=== PATIENT | male | born 1990 | race Caucasian/White ===

== ENCOUNTER 2019-06-06 15:25 | Emergency (ER) | payer MEDICAID, SELFPAY ==
[2019-06-06 15:25] VITALS: BP 131/73; PULSE 82; RESP 16; TEMP 36.8; O2SAT 99; BMI 21.7
--- NOTE | 2019-06-06 15:40 | CT_ITS ---
STUDY: CT ABDOMEN AND PELVIS WITHOUT CONTRAST REASON FOR EXAM: Male, 28 years old. LEFT FLANK PAIN AND HEMATURIA FEW DAYS AGO. BURNING WITH URINATION RADIATION DOSAGE (If Supplied By Facility): CTDIvol = ( 6.04 ) mGy, DLP = ( 277.84 ) mGycm TECHNIQUE: Transaxial images were obtained from the dome of the diaphragm to the symphysis pubis without oral contrast, and without intravenous contrast. Sagittal and coronal images were reconstructed. Individualized dose optimization techniques were used for this CT. COMPARISON: None. FINDINGS: The visualized lung bases are unremarkable. The visualized portions of the heart are within normal limits. Normal liver. Normal gallbladder and extrahepatic biliary system. Normal spleen. Normal pancreas. Normal bilateral adrenal glands. Normal right kidney. Normal left kidney. Normal visualized stomach. Normal small intestine. Normal colon. The appendix is visualized and appears normal. Normal abdominal aorta. Normal inferior vena cava. Normal retroperitoneum. Normal urinary bladder. Normal abdominal wall. Normal osseous structures. CT/Abdomen/Pelvis without Cont IMPRESSION: Normal unenhanced CT of the abdomen and pelvis. Electronically Signed: Jalil Hardwick MD at 16:18 EDT , Service support ,
--- NOTE | 2019-06-06 15:43 | ED.DCSUM_ITS ---
- ER Visit Summary Date of Service: 06/06/19 Chief Complaint: Atraumatic left flank pain History of Present Illness: The patient is a 28 M has medical history of seizures and ADHD. Patient states he has had left flank pain since yesterday. Is a dull aching at times its sharp squeezing pain. He did have hematuria several days ago. He is never been diagnosed with a kidney stone before. He has had flank pain before had an ultrasound that he thinks was negative. Is never had a CAT scan. He denies any dysuria. No fever. No other complaints. Physical Examination: Young male no acute distress vital signs stable afebrile. Currently he is relatively comfortable and does not be there for pain. H EENT exam normal. Neck nontender no lymphadenopathy. Lungs clear to auscultation bilaterally. Heart regular rhythm no murmur. Abdomen soft nontender normal bowel sounds no peritoneal signs. Extremities moves all 4 neurovascular intact. Normal motor strength sensation. Back no reproducible tenderness on his back no signs of trauma. No CVA tenderness. Neurologically is awake alert with no focal motor deficits. Test Results: UA normal. CAT scan abdomen pelvis normal. Normal appendix. No stone seen. Read by the radiologist and reviewed by me. Emergency Department Course and Treatment: Patient currently does not need or waiting for pain. Definitely this could be a kidney stone. We will get a CAT scan without contrast and urinalysis. Treatment Plan: Repeat exam patient doing well at 1655. Abdomen benign. We went over his test results. Strain his urine for possible stone. Follow-up as needed. Disposition: Discharge Impression: Acute left flank pain of uncertain etiology This note was generated with [employer] dictation software. It may contain incorrect words, spelling, and punctuation that were not noted in review of the chart prior to signing ED Disposition - Plan for ED Patient: Referrals: Vladislav Campa MD [Primary Care Provider] -
[2019-06-06 15:51] LABS: Bacteria 0 SEEN /hpf (None Seen); Mucous, Urine 0 SEEN /hpf (<or=2+); Red Blood Cells-Urine 0 SEEN /hpf (0-5); Squamous Epithelial Cells - UA 0 SEEN /hpf (0-5); White Blood Cells 0 SEEN /hpf (0-5)
[2019-06-06 15:52] LABS: Color, Urine Yellow (Yellow); Glucose, Dipstick Normal (Normal); Ketone-Dipstick Negative (Negative); Leukocyte Esterase-Dipstick Negative /ul (Negative); Nitrite-Dipstick Negative (Negative); Occult Blood-Urine Negative /ul (Negative); Protein-Dipstick Negative (Negative); Specific Gravity, Urine 1.025 (1.002-1.030); Urine Bilirubin Dipstick Negative (Negative); Urine Clarity Clear (Clear); Urine Urobilinogen Normal (Normal)
--- NOTE | 2019-06-06 17:06 | ED.DEP ---
ED Disposition - Plan for ED Patient: Disposition: Home or Assisted Living Instructions: ED Flank Pain Uncertain Cause Referrals: Vladislav Campa MD [Primary Care Provider] - 3-5 Days if not improving Additional Instructions: Both your urine and CAT scan were normal. Your appendix was seen and is normal. They did not see any kidney stone. Strain your urine for possible passed stone. Follow-up if not improving.
== END 2019-06-06 17:11 | disposition home or self-care (01) ==
PROVIDERS: Emergency Provider Emergency Medicine; PCP Family Medicine
DX: R10.9 Unspecified abdominal pain (principal); R05 Cough; F90.9 Attention-deficit hyperactivity disorder, unspecified type; G40.909 Epilepsy, unspecified, not intractable, without status epilepticus; Z72.0 Tobacco use
CPT/HCPCS: 74176; 81001; 99282

== ENCOUNTER → 2019-07-08 11:02 | Outpatient (CLI) | payer MEDICAID, SELFPAY ==
[2019-07-08 11:17] LABS: Bacteria 0 SEEN /hpf (None Seen); Mucous, Urine 0 SEEN /hpf (<or=2+); Red Blood Cells-Urine 0 SEEN /hpf (0-5); White Blood Cells 0 SEEN /hpf (0-5)
[2019-07-08 15:37] LABS: Hematocrit 43.1 % (40-54); Mean Corp Hgb Conc 34.8 g/dL (32-36); Mean Corpuscular Hgb 29.5 pg (27.0-32.0); Mean Corpuscular Volume 84.7 fL (80-94); Mean Platelet Vol. 8.5 fl (6.2-12.0); Platelet Count 293 K/mm3 (150-450); RBC Distribution Width CV 11.9 % (11.6-14.6); RBC Distribution Width SD 36.1 fl (35.1-43.9); Red Blood Count 5.09 M/mm3 (4.6-6.2); White Blood Count 7.5 K/mm3 (4.4-11.0)
[2019-07-08 15:50] LABS: Hemoglobin A1c 5.5 % (4.2-6.3)
[2019-07-08 15:54] LABS: Color, Urine Yellow (Yellow); Glucose, Dipstick Normal (Normal); Ketone-Dipstick Negative (Negative); Leukocyte Esterase-Dipstick Negative /ul (Negative); Nitrite-Dipstick Negative (Negative); Occult Blood-Urine Negative /ul (Negative); Protein-Dipstick Negative (Negative); Urine Bilirubin Dipstick Negative (Negative); Urine Clarity Sl. Cloudy (Clear); Urine Urobilinogen Normal (Normal); Urine pH 6.5 (5.0 - 8.0)
[2019-07-08 16:03] LABS: ALB/GLOB Ratio 1.2 RATIO (0.9-2.4); AST(SGOT) 16 U/L (15-37); Alanine Aminotransfer ALT/SGPT 27 U/L (16-61); Albumin, Serum 3.9 g/dL (3.2-5.0); Alkaline Phosphatase 94 U/L (45-117); Anion Gap 2 (5-15); BUN 14 mg/dL (7-18); BUN/Creat Ratio 18.2 RATIO (10-20); Calcium,Total 9.2 mg/dL (8.5-10.1); Chloride 103 mmol/L (98-107); Creatinine, Serum 0.77 mg/dL (0.70-1.30); EST Glomerular Filtration Rate 125 mL/min (>60); Est Glom Filt Rate - Afr Amer 151 mL/min (>60); Free T3 3.7 pg/mL (2.18-3.98); Globulin 3.2 g/dL (2.2-4.2); Glucose 73 mg/dL (74-106); Potassium 3.7 mmol/L (3.5-5.1); Protein, Total 7.1 g/dL (6.4-8.2); Sodium Level 138 mmol/L (136-145); T4 Free Direct 1.01 ng/dL (0.76-1.46); Thyroid Stim Hormone (TSH) 0.69 uIU/mL (0.358-3.74)
[2019-07-08 16:04] LABS: Amorphous Sediment 1+ URATE; Squamous Epithelial Cells - UA 0-5 SEEN /hpf (0-5)
[2019-07-08 16:08] LABS: Microalbumin,Random Urine 5.4 mg/L (NO RANGE EST.); Microalbumin:Creatinine Ratio 5.4 mg/g CRE (<30 mg/g CRE); Urine Sodium 126 mmol/L (Not Establ.)
== END ==
PROVIDERS: PCP Family Medicine; Referring Provider Family Medicine; Visit Provider Family Medicine
DX: R35.8 Other polyuria (principal); J45.20 Mild intermittent asthma, uncomplicated; R79.89 Other specified abnormal findings of blood chemistry
CPT/HCPCS: 36415; 80053; 81001; 82043; 82570; 83036; 84300; 84439; 84443; 84481; 85027

== ENCOUNTER 2020-12-23 13:19 | Emergency (ER) | payer OTHER, SELFPAY ==
[2020-12-23 13:20] VITALS: BP 119/73; PULSE 85; RESP 18; TEMP 36.2; O2SAT 96; BMI 20.9
--- NOTE | 2020-12-23 13:29 | ED.RN ---
called Ivette to come in for drug screening.
--- NOTE | 2020-12-23 15:27 | EX.ED.GENINJ ---
HPI History of Present Illness Chief Complaint: Head Injury Detail of Chief Complaint: Head injury that occurred yesterday Narrative Narrative: Patient presents to the emergency department stating that he was at work yesterday when he ran into a metal pipe with his head. No loss of consciousness. He became concerned today when while sitting he began feeling lightheaded and near syncopal. Patient did not actually pass out. Patient states that the symptoms did not last very long and currently all the symptoms of resolved. Patient denies headache. He denies neck pain. He has had no vomiting. Patient is not anticoagulated. Patient does have history of seizures but is not medicated for these. He has no primary care physician. PFSH PFSH Home Medications NK 06/06/19 [History Last Taken Unknown] Allergy/AdvReac Type Severity Reaction Status Date / Time Iodinated Contrast Media AdvReac PT UNSURE Verified 06/06/19 15:27 [CONTRASTS] OF REACTION naproxen [From Naprosyn] AdvReac Upset Verified 06/06/19 15:27 Stomach Social History Smoking Status: Current every day smoker ROS ROS ED ROS Narrative Lightheadedness and near syncope Constitutional Constitutional ED: Reports systems reviewed and no addt'l complaints, except as documented; Denies body ache(s), change in weight or chills Eyes Eyes: Denies acute decrease in peripheral vision, change in vision, double vision or loss of vision ENT ENT ED: Reports none; Denies ear pain, lip swelling, loss taste/smell, neck pain, otalgia or sore throat Cardiovascular Cardiovascular: Reports none; Denies abdominal pain, chest pain with activity, leg edema, lightheadedness, palpitations, rapid heart rate or syncope Respiratory/Chest Respiratory/Chest: Reports none; Denies change in mental status, dry cough, dyspnea, hemoptysis, shortness of breath at rest or shortness of breath with exertion Gastrointestinal Gastrointestinal: Reports none; Denies abdominal pain, change in stool character, diarrhea, hematemesis, hematochezia, melena, rectal bleeding or vomiting Genitourinary Genitourinary ED: Reports none; Denies abdominal discomfort, anuria, dysuria, genital pain or polyuria Musculoskeletal Musculoskeletal: Reports none; Denies arthralgias, back pain, difficulty walking, extremity pain, muscle weakness or myalgias Integumentary Reports none; Denies abscess or rash Neurologic Neurologic: Reports none; Denies abnormal gait, confusion, focal weakness, frequent falls, headache(s), loss of vision, numbness, paresthesias, radicular pain, vertigo or weakness Psychiatric Psychiatric: Reports systems reviewed and no addt'l complaints, except as documented and none; Denies behavioral changes, confusion, difficulty concentrating, hallucinations, suicidal ideation, tactile hallucinations or visual hallucinations Endocrine Endocrinology: Denies none, cold intolerance, excessive sweating, fatigue or heat intolerance Hematologic/Lymphatic Hematologic/Lymphatic: Reports none; Denies anemia, easy bleeding or easy bruising Allergic/Immunologic Allergic/Immunologic ED: Denies as per HPI, none, lip swelling, mouth swelling, throat swelling, tongue swelling or hives EXAM Physical Exam Const Vital Signs: 12/23/20 13:20 Temperature 97.2 F L Temperature Source Temporal Pulse Rate 85 Respiratory Rate 18 Blood Pressure 119/73 Blood Pressure Mean 88 Pulse Ox 96 Oxygen Delivery Method Room Air Positive well nourished and well developed General Appearance ED: well developed and NAD HEENT Reports TM's clear and moist mucous membranes HEENT Narrative: Patient has a linear area of subtle erythema to the frontal scalp measuring approximately 1.5 cm in length. No bony step-offs noted. No hematomas noted. No hemotympanum. normocephalic, atraumatic and trauma; Negative for tenderness Tympanic Membrane ED: Yes TM's clear Eyes PERRL and EOMs intact bilaterally General Eye ED: Negative for pale conjunctiva or scleral icterus Neck no lymphadenopathy, supple and no JVD General: Negative for tenderness Chest Wall inspection of chest normal and palpation of chest normal Chest: Negative for tenderness Resp normal respiratory effort and clear to auscultation bilaterally Effort and Inspection: Negative for respiratory distress or pain with movement Auscultation: Negative for rhonchi, wheezes or diminished lung sounds Cardio regular rate, regular rhythm, S1 normal heart sound, S2 normal heart sound and no murmurs Peripheral Pulses: pulses 2+ throughout GI normal to inspection, nondistended, normoactive bowel sounds, soft to palpation, non-tender, non-distended and no masses Back/Spine no CVA tenderness and no thoracic nor lumbar tenderness Extremity normal to inspection General Extremety ED: Negative for edema General Extremity: Negative for edema Neuro oriented x3, CN's II-XII intact bilaterally, no sensory deficits noted and gait normal Neuro Narrative: Finger-nose and heel saunders testing within normal limits, negative Romberg, negative pronator drift, fundi benign Sensorium / Orientation: awake, alert, oriented to person, oriented to place and oriented to time Motor Exam: strength 5/5 throughout and strength abnormal Psych mental status grossly normal Skin no rashes or lesions noted and no wounds MDM MDM MDM Narrative Medical decision making narrative: At this point I suspect patient has a closed head injury with mild concussion. I do not feel any imaging is indicated. Patient looks well and is asymptomatic at this time. Patient advised to follow-up with [facility] care in 3 to 5 days. Patient to return if worsening headache, vomiting, difficulty with balance, vision changes, or condition should worsen anyway. Discharge Plan Triage Chief Complaint: Head Injury ED Provider: Alexy Quezada Dx/Rx/DC Orders Clinical Impression: Closed head injury Instructions: After a Concussion, ED Head Injury (Adult) Prescriptions: No Action NK RF: 0 Primary Care Provider: Vladislav Campa [facility]errals: [facility] [GROUP OF PHYSICIANS] - 3-5 Days Vladislav Campa MD [Primary Care Provider] - Disposition Disposition: Home, Self Care
[2020-12-23 15:38] VITALS: RESP 16
== END 2020-12-23 15:40 | disposition home or self-care (01) ==
LOC: ED 15:37
PROVIDERS: Emergency Provider Emergency Medicine; PCP Family Medicine
DX: S09.90XA Unspecified injury of head, initial encounter (principal); W22.8XXA Striking against or struck by other objects, initial encounter; Y93.9 Activity, unspecified; Y92.9 Unspecified place or not applicable; F17.200 Nicotine dependence, unspecified, uncomplicated
CPT/HCPCS: 99282

== ENCOUNTER 2021-03-16 12:59 | Emergency (ER) | payer MEDICAID, SELFPAY ==
[2021-03-16 13:00] VITALS: BP 130/82; PULSE 73; RESP 16; TEMP 36.4; O2SAT 100; BMI 22.6
--- NOTE | 2021-03-16 13:33 | RAD_ITS ---
STUDY: X-RAY - THORACIC SPINE REASON FOR EXAM: Male, 30 years old. Pain TECHNIQUE: 3 view(s) of the thoracic spine were obtained. COMPARISON: None. FINDINGS: There is straightening of the normal thoracic kyphosis. There is no substantial scoliosis. Normal thoracic vertebrae and endplates. Normal disc space heights. The soft tissue structures are unremarkable. RAD/Thoracic Spine 3 Views IMPRESSION: Straightening of the normal thoracic kyphosis. Electronically Signed: Flex Conte MD at 14:06 EST , Service support ,
--- NOTE | 2021-03-16 13:33 | RAD_ITS ---
STUDY: X-RAY - LUMBAR SPINE REASON FOR EXAM: Male, 30 years old. Pain TECHNIQUE: 3 view(s) of the lumbar spine were obtained. COMPARISON: None FINDINGS: Normal lumbar lordosis. There is no substantial scoliosis. There is a normal alignment of the vertebrae. Normal vertebral bodies and endplates. Normal disc space heights. The soft tissue structures are unremarkable. RAD/Lumbar Spine 2 or 3 Views IMPRESSION: Normal x-ray examination of the lumbar spine. Electronically Signed: Flex Conte MD at 14:06 EST , Service support ,
--- NOTE | 2021-03-16 13:34 | EDS_ITS ---
HPI History of Present Illness Chief Complaint: Back Detail of Chief Complaint: Back pain that started a week ago initially Informant: patient Narrative Narrative: Patient presents to the emergency department complaint of pain in his back that started initially a week ago and was more mild. Last evening the pain became more severe. Patient denies pain rating down his legs. He describes it as lower to mid back and then radiates up the towards the upper to mid back. Patient denies any loss of bowel or bladder function or weakness to the extremities. Patient states that he works at our [employer] and does a lot of lifting of heavy metal. He denies any falls or direct trauma. [facility] Medical History (Updated 03/16/21 @ 14:[address] Alexy Quezada, ) Back pain Scoliosis Home Medications cyclobenzaprine 10 mg PO TID PRN #20 tablet 03/16/21 [Rx Last Taken Unknown] Allergy/AdvReac Type Severity Reaction Status Date / Time Iodinated Contrast Media AdvReac PT UNSURE Verified 03/16/21 13:02 [CONTRASTS] OF REACTION naproxen [From Naprosyn] AdvReac Upset Verified 03/16/21 13:02 Stomach Surgical History no surgical history Social History Smoking Status: Current every day smoker tobacco type: cigarettes ROS ROS ED Constitutional Constitutional ED: Reports systems reviewed and no addt'l complaints, except as documented; Denies body ache(s), change in weight or chills Eyes Eyes: Denies acute decrease in peripheral vision, change in vision, double vision or loss of vision ENT ENT ED: Reports none; Denies ear pain, lip swelling, loss taste/smell, neck pain, otalgia or sore throat Cardiovascular Cardiovascular: Reports none; Denies abdominal pain, chest pain with activity, leg edema, lightheadedness, palpitations, rapid heart rate or syncope Respiratory/Chest Respiratory/Chest: Reports none; Denies change in mental status, dry cough, dyspnea, hemoptysis, shortness of breath at rest or shortness of breath with exertion Gastrointestinal Gastrointestinal: Reports none; Denies abdominal pain, change in stool c haracter, diarrhea, hematemesis, hematochezia, melena, rectal bleeding or vomiting Genitourinary Genitourinary ED: Reports none; Denies abdominal discomfort, anuria, dysuria, genital pain or polyuria Musculoskeletal Musculoskeletal: Reports none and back pain; Denies arthralgias, difficulty walking, extremity pain, muscle weakness or myalgias Integumentary Reports none; Denies abscess or rash Neurologic Neurologic: Reports none; Denies abnormal gait, confusion, focal weakness, frequent falls, headache(s), loss of vision, numbness, paresthesias, radicular pain, vertigo or weakness Psychiatric Psychiatric: Reports systems reviewed and no addt'l complaints, except as documented and none; Denies behavioral changes, confusion, difficulty concentrating, hallucinations, suicidal ideation, tactile hallucinations or visual hallucinations Endocrine Endocrinology: Denies none, cold intolerance, excessive sweating, fatigue or heat intolerance Hematologic/Lymphatic Hematologic/Lymphatic: Reports none; Denies anemia, easy bleeding or easy bruising Allergic/Immunologic Allergic/Immunologic ED: Denies as per HPI, none, lip swelling, mouth swelling, throat swelling, tongue swelling or hives EXAM Physical Exam Const Vital Signs: 03/16/21 13:00 Temperature 97.6 F L Temperature Source Temporal Pulse Rate 73 Respiratory Rate 16 Blood Pressure 130/82 H Blood Pressure Mean 98 Pulse Ox 100 Oxygen Delivery Method Room Air Positive well nourished and well developed General Appearance ED: well developed and NAD HEENT Reports TM's clear and moist mucous membranes normocephalic and atraumatic; Negative for trauma or tenderness Tympanic Membrane ED: Yes TM's clear Eyes PERRL and EOMs intact bilaterally General Eye ED: Negative for pale conjunctiva or scleral icterus Neck no lymphadenopathy, supple and no JVD General: Negative for tenderness Chest Wall inspection of chest normal and palpation of chest normal Chest: Negative for tenderness Resp normal respiratory effort and clear to auscultation bilaterally Effort and Inspection: Negative for respiratory distress or pain with movement Auscultation: Negative for rhonchi, wheezes or diminished lung sounds Cardio regular rate, regular rhythm, S1 normal heart sound, S2 normal heart sound and no murmurs Peripheral Pulses: pulses 2+ throughout GI normal to inspection, nondistended, normoactive bowel sounds, soft to palpation, non-tender, non-distended and no masses Back/Spine no CVA tenderness and no thoracic nor lumbar tenderness Back/Spine Narrative: Patient has diffuse tenderness to palpation over the lumbar spine as well as the lower thoracic spine. No real tenderness over the thoracic or lumbar paraspinal musculature noted. He has negative straight leg raises. Deep tendon reflexes are plus 2 out of 4 bilaterally at the patella and Achilles. Patient has normal 5 extension. Patient has normal sensation to light touch. Extremity normal to inspection General Extremety ED: Negative for edema General Extremity: Negative for edema Neuro oriented x3, CN's II-XII intact bilaterally, no sensory deficits noted and gait normal Sensorium / Orientation: awake, alert, oriented to person, oriented to place and oriented to time Motor Exam: strength 5/5 throughout and strength abnormal Psych mental status grossly normal Skin no rashes or lesions noted and no wounds MDM MDM MDM Narrative Medical decision making narrative: Patient's back pain I suspect likely is related to lifting at work. He will be given some work restrictions. He will be given a prescription for Flexeril. He had advised to follow-up with primary care physician asset protection detective for no doc within next 5 to 7 days. Patient to return if worsening pain, weakness in extremities, or condition should worsen anyway Radiography Diagnostic Testing: Clinical Impression(s) from Imaging Studies Lumbar Spine X-Ray 03/16/21 13:33 IMPRESSION: Normal x-ray examination of the lumbar spine. Electronically Signed: Flex Conte MD at 14:06 EST , Service support , Thoracic Spine X-Ray 03/16/21 13:33 IMPRESSION: Straightening of the normal thoracic kyphosis. Electronically Signed: Flex Conte MD at 14:06 EST , Service support , Three-view x-rays of thoracic and lumbar spine obtained interpreted by myself as no acute fractures. Radiology in agreement. No evidence of lytic lesions noted. Discharge Plan Triage Chief Complaint: Back ED Provider: Alexy Quezada Dx/Rx/DC Orders Clinical Impression: Back strain Instructions: ED Back Sprain/Strain Prescriptions: New cyclobenzaprine [cyclobenzaprine] 10 MG tablet 10 mg PO TID PRN (Reason: Muscle Spasm) Qty: 20 RF: 0 Primary Care Provider: Care Physician,No Primary Referrals: Vladislav Campa MD [STAFF PHYSICIAN] - 5-7 Days Care Physician,No Primary [Primary Care Provider] - Disposition Disposition: Home, Self Care
== END 2021-03-16 14:41 | disposition home or self-care (01) ==
PROVIDERS: Emergency Provider Emergency Medicine; Visit Provider Emergency Medicine
DX: S29.012A Strain of muscle and tendon of back wall of thorax, initial encounter (principal); S39.012A Strain of muscle, fascia and tendon of lower back, initial encounter; X58.XXXA Exposure to other specified factors, initial encounter; F17.210 Nicotine dependence, cigarettes, uncomplicated
CPT/HCPCS: 72072; 72100; 99282

== ENCOUNTER 2021-05-08 13:10 | Emergency (ER) | payer MEDICAID, SELFPAY ==
[2021-05-08 13:11] VITALS: BP 115/77; PULSE 74; RESP 16; TEMP 36; O2SAT 99; BMI 21.6
--- NOTE | 2021-05-08 14:03 | EDS_ITS ---
HPI HPI - GI History of Present Illness Chief Complaint: Abd Pain Informant: patient Abdominal Pain/Flank Pain Onset: Days (Onset 3 days ago,) Context: Sudden Onset Timing: Intermittent and Lasts (Approximately 1 minute) Location: [facility] Current Severity: Mild Maximum Severity: Severe Worsened by: Nothing Relieved by: Nothing Nausea/Vomiting/Emesis GI Symptom: Positive for Nausea and Vomiting (X1 3 days ago) Onset: Days (3 days ago) Quality: Negative for Nonbilious, Blood streaks, Coffee ground and Hematemesis Diarrhea/Melena/Hematochezia GI Symptom: Positive for Diarrhea (3 days ago 5 times, yesterday 7 times and 2 times today) Onset: Days (3 days ago) Stool Quality: Positive for Watery; Negative for Mucous, Black, Maroon and BRB per rectum Associated Symptoms Associated Symptoms: Negative for Dysuria, Frequency and Hematuria LMP: Not applicable Narrative Narrative: Patient is a 30-year-old male no significant past medical history who presents with nausea, vomiting diarrhea that started 3 days ago. He had one episode of emesis 3 days ago. Had several episodes of diarrhea since onset. He now complains of worsening left upper quadrant pain that is intermittent. Duration of the pain is approximately 1 minute. Nothing exacerbates, precipitates or alleviates his discomfort. He describes his pain in the left upper quadrant goes through to his flank. He denies dysuria, frequency, urgency or hematuria. He states he had a similar episode in the past but never sought medical attention. He denies any ill contacts. He denies documented fever. He denies upper respiratory symptoms. He denies myalgias or arthralgias. He denies rash. He denies eating anything that may have tasted unusual to him Prior similar symptoms: Yes Recent Illness/Hospitalization: No [facility] Medical History Back pain Scoliosis Home Medications cyclobenzaprine 10 mg PO TID PRN #20 tablet 03/16/21 [Rx Last Taken Unknown] dicyclomine 20 mg PO TIDAC #20 capsule 05/08/21 [Rx Last Taken Unknown] Allergy/AdvReac Type Severity Reaction Status Date / Time Iodinated Contrast Media AdvReac PT UNSURE Verified 05/08/21 13:11 [CONTRASTS] OF REACTION naproxen [From Naprosyn] AdvReac Upset Verified 05/08/21 13:11 Stomach Social History (Updated 05/08/21 @ 14:[address] Arjun Brito MD) household members: none Smoking Status: Current every day smoker tobacco type: cigarettes alcohol intake: former substance use type: does not use ROS ROS ED Constitutional Constitutional ED: Denies chills, fever(s), subjective or sweats ENT ENT ED: Denies ear pain, rhinorrhea or sore throat Cardiovascular Cardiovascular: Denies chest pain, palpitations or racing heartbeat Respiratory/Chest Respiratory/Chest: Denies cough, dyspnea or dyspnea on exertion Gastrointestinal Gastrointestinal: Reports abdominal pain, diarrhea, nausea and vomiting; Denies constipation or melena Genitourinary Genitourinary ED: Denies dysuria, hematuria or urinary frequency Musculoskeletal Musculoskeletal: Denies arthralgias, back pain, myalgias or neck pain Integumentary Denies abscess, Abrasions or rash Neurologic Neurologic: Denies headache(s), paresthesias or weakness Psychiatric Psychiatric: Denies anxiety or depression Endocrine Endocrinology: Denies polydipsia, polyphagia or polyuria Hematologic/Lymphatic Hematologic/Lymphatic: Denies easy bleeding, easy bruising or lymphadenopathy EXAM Physical Exam Const Vital Signs: 05/08/21 13:11 Temperature 96.8 F L Temperature Source Temporal Pulse Rate 74 Respiratory Rate 16 Blood Pressure 115/77 Blood Pressure Mean 89 Pulse Ox 99 Oxygen Delivery Method Room Air Positive well nourished, well developed and unkempt; Negative for obese, cachectic or contractures General Appearance ED: unkempt and well developed; Negative for cachectic, contractures, NAD or pallor Nutritional Appearance: Negative for cachectic or obese HEENT Reports TM's clear, dry mucous membranes and other normocephalic, atraumatic and other; Negative for trauma or tenderness Tympanic Membrane ED: Yes TM's clear Mouth ED: Yes dry mucous membranes Mouth: dry mucous membranes Eyes PERRL and EOMs intact bilaterally General Eye ED: Negative for pale conjunctiva or scleral icterus Neck no lymphadenopathy, supple and no JVD Resp normal respiratory effort and clear to auscultation bilaterally Cardio regular rate, regular rhythm, S1 normal heart sound, S2 normal heart sound and no murmurs GI non-tender, non-distended and no masses Auscultation: normoactive bowel sounds Palpation: soft Back/Spine no CVA tenderness Cervical Spine: Negative for cervical spine tenderness Thoracic Spine / Upper Back: Negative for thoracic spinal tenderness Lumbar Spine / Lower Back: Negative for lumbar spinal tenderness Extremity full ROM General Extremety ED: Negative for edema or tenderness General Extremity: Negative for edema Neuro CN's II-XII intact bilaterally and no sensory deficits noted Sensorium / Orientation: alert, oriented to person, oriented to place and orie nted to time Motor Exam: strength 5/5 throughout Psych mental status grossly normal and thought process normal Appearance: unkempt Skin no wounds General Skin Exam: Negative for jaundice or pallor Lesions: no lesions Rashes: no rashes MDM MDM MDM Narrative Medical decision making narrative: Patient presents with viral-like symptoms and primary organ system affected is GI. Since he had diarrhea for 3 days basic metabolic panel was obtained to assess potassium. Since he reports orthostatic s ymptoms dry mouth and has dry mucosa normal saline was ordered wide open. He was administered Bentyl and Imodium for his pain and diarrhea. Since he is no longer nauseous antiemetic was not ordered. I was informed by nursing staff at approximately 1455 that patient wants to know what is wrong. He wants no test. He wants no medication. Patient was informed he most likely has a viral illness. He was explained why the blood test was ordered that was ordered. He was informed the most likely explanation for his discomfort. Since patient has a benign abdomen and reason for blood test was to evaluate for hypokalemia we will cancel tests and treatment that were ordered. He will be discharged home with prescription for dicyclomine. Is in my pression opinion patient has capacity to decline test. There is no significant risk if he declines these tests either. Discharge Plan Triage Chief Complaint: Abd Pain ED Provider: Arjun Brito Dx/Rx/DC Orders Clinical Impression: Abdominal pain, vomiting, and diarrhea, Dehydration, mild, Dental caries extending into pulp Prescriptions: New dicyclomine 10 MG capsule 20 mg PO TIDAC Qty: 20 RF: 0 No Action cyclobenzaprine [cyclobenzaprine] 10 MG tablet 10 mg PO TID PRN (Reason: Muscle Spasm) Qty: 20 RF: 0 Primary Care Provider: Care Physician,No Primary Referrals: Christoph Cruz MD [STAFF PHYSICIAN] - 3-5 Days if not improving Care Physician,No Primary [Primary Care Provider] - Disposition Disposition: Home, Self Care Capacity Capacity Assessment Tool Can the patient make a choice & communicate that choice?: Yes Can the patient understand benefits, risks and alternatives?: Yes Can the patient make a logical, rational choice?: Yes Is the choice the patient makes consistent w/ their values?: Yes Is there an impending, emergent risk to the patient?: No Does the patient have an Advance Directive?: No Is there a Surrogate Available?: No i.e. HCPOA: No i.e. close relative (spouse, child, parent, sibling)?: No
--- NOTE | 2021-05-08 14:50 | ED.RN ---
PT REFUSED IV AND LABWORK
--- NOTE | 2021-05-08 14:52 | ED.RN ---
PROVIDER AWARE THAT PT IS REFUSING LABWORK. PROVIDER STATES HE WILL GO SPEAK WITH HIM. PT INFORMED PROVIDER WILL BE IN.
== END 2021-05-08 15:29 | disposition home or self-care (01) ==
PROVIDERS: Emergency Provider Emergency Medicine; Visit Provider Emergency Medicine
DX: R10.12 Left upper quadrant pain (principal); R11.2 Nausea with vomiting, unspecified; R19.7 Diarrhea, unspecified; K02.9 Dental caries, unspecified; E86.0 Dehydration; F17.210 Nicotine dependence, cigarettes, uncomplicated
CPT/HCPCS: 99282